=== PATIENT | female | born 1940 | race Hispanic/Latino ===

== ENCOUNTER 2020-11-03 08:52 | Inpatient (IN) | payer MEDICARE ==
--- NOTE | 2020-11-03 10:06 | Emergency Department Report ---
HPI - General Chief Complaint: Dyspnea/Respdistress Time Seen by Provider: 11/03/20 09:18 - HPI HPI: 80-year-old female presents to the emergency department via EMS from her custodial facility with a complaint of weeping of the bilateral lower extremities with pitting edema. They also stated that "resident also has shakiness/jitteriness that is not normal." She was hospitalized 3 weeks ago for anemia and pneumonia, however it was not at our facility. Her initial vitals from the custodial facility show moderate to severe tachycardia and some hypoxia. The patient has a history of dementia and is a very poor historian. She also appears to have a history of hypertension, anxiety, gout, hyperlipidemia and rheumatoid arthritis. ED Review of Systems ROS: Stated complaint: DEMENTIA/LEG EDEMA Other details as noted in HPI Comment: Unobtainable due to pts medical conditions Physical Exam - Physical Exam Vital Signs: Vital Signs 11/03/20 11/03/20 11/03/20 09:30 09:45 09:50 Temperature 100.3 F H Pulse Rate 97 H Respiratory 12 Rate Blood Pressure 147/62 [Left] O2 Sat by Pulse 98 Oximetry 11/03/20 09:51 Temperature Pulse Rate 94 H Respiratory Rate Blood Pressure [Left] O2 Sat by Pulse Oximetry Physical Exam: GENERAL: The patient is well-developed well-nourished. HENT: Normocephalic. Atraumatic. Patient has moist mucous membranes. EYES: Extraocular motions are intact. Ill-appearing. Pupils equal reactive to light bilaterally. NECK: Supple. Trachea is midline. CHEST/LUNGS: Coarse breath sounds throughout the chest. There is some tachypnea but no accessory muscle use. HEART/CARDIOVASCULAR: Regular. There is mild tachycardia. There is no murmur. ABDOMEN: Abdomen is soft, nontender. Patient has normal bowel sounds. There is no abdominal distention. SKIN: Skin is warm and dry. 3+ pitting edema to the bilateral lower extremities. Mild erythema and warmth. No weeping or drainage. NEURO: The patient is awake but confused. AAO x1 to person, but not place or time. Follows some commands. Withdraws from painful stimuli. MUSCULOSKELETAL: There is no tenderness or deformity. ED Course Vital Signs 11/03/20 11/03/20 11/03/20 09:30 09:45 09:50 Temperature 100.3 F H Pulse Rate 97 H Respiratory 12 Rate Blood Pressure 147/62 [Left] O2 Sat by Pulse 98 Oximetry 11/03/20 09:51 Temperature Pulse Rate 94 H Respiratory Rate Blood Pressure [Left] O2 Sat by Pulse Oximetry ED Medical Decision Making - Lab Data Result diagrams: 11/03/20 10:00 11/03/20 10:00 - EKG Data -: EKG Interpreted by Me EKG shows normal: sinus rhythm, axis, intervals, QRS complexes (Q waves to the septal leads), ST-T waves Rate: normal - EKG Data When compared to previous EKG there are: previous EKG unavailable Interpretation: other (Sinus rhythm at 93 bpm. Normal axis, normal intervals. No ST elevation DE) - Radiology Data Radiology results: report reviewed, image reviewed interpreted by me: Chest x-ray shows cardiomegaly and pulmonary vascular congestion. CTA CHEST WITH CONTRAST INDICATION : Shortness of breath, elevated d-dimer. TECHNIQUE: Axial imaging performed through the chest, with contrast bolus timing set to maximize opacification of the pulmonary arteries. Sagittal and coronal reformatted images. 3-plane MIP reformatted images were obtained. All CT scans at this location are performed using CT dose reduction for ALARA by means of automated exposure control. 100 mL of intravenous contrast administered. COMPARISON: None FINDINGS: Bolus: Contrast bolus timing is adequate. PTE: No filling defect is present to suggest PTE. Mediastinum: Mild cardiomegaly. No pericardial effusion. The thyroid gland, tracheobronchial tree, esophagus and aorta are unremarkable. A moderate to large hiatal hernia is identified. No pathologic mediastinal adenopathy. Lungs: Small right pleural effusion and trace left pleural effusion are identified. There is mild pulmonary venous conges tion. 2 cm cyst is noted in the medial right upper lobe. No evidence for infiltrate or mass. No interstitial lung disease. Bones: Degenerative changes in the spine with nothing acute. Upper abdomen: Limited images of the upper abdomen demonstrate at least one large gallstone in the gallbladder measuring 2.1 cm. IMPRESSION: No evidence for pulmonary embolus. Mild CHF. Hiatal hernia. Large gallstone. - Medical Decision Making This patient presents from her custodial facility with a complaint of some shakiness/jitteriness, and weeping bilateral lower extremity swelling. Patient has dementia so it is unknown whether she is at her baseline but she is mostly nonverbal, AAO x1. She does have pitting edema of the bilateral lower extremities. They are warm and slightly erythematous but I do not see any weeping or drainage. She has coarse breath sounds throughout the chest. Patient presents with tachycardia and a low-grade fever. She was then treated empirically with some Levaquin. Later she was found to have a significant urinary tract infection as the source of her fever, as well as her leukocytosis of 25,000. The patient also appears to have a CHF exacerbation with the chest x-ray findings of pulmonary vascular congestion and a BNP of about 1700 without renal insufficiency. She also had an elevated D-dimer level for which she had a CT angiography of the chest. No pulmonary embolism but once again shows mild CHF and a hiatal hernia. Patient will be admitted to the hospital for further evaluation and treatment was accepted for admission by the hospitalist, Dr. Hodge. Critical Care Time: No Critical care attestation.: If time is entered above; I have spent that time in minutes in the direct care of this critically ill patient, excluding procedure time. ED Disposition Clinical Impression: Sepsis Qualifiers: Sepsis type: sepsis due to unspecified organism Sepsis acute organ dysfunction status: unspecified Qualified Code(s): A41.9 - Sepsis, unspecified organism UTI (urinary tract infection) Qualifiers: Urinary tract infection type: acute cystitis Hematuria presence: without hem aturia Qualified Code(s): N30.00 - Acute cystitis without hematuria CHF (congestive heart failure) Qualifiers: Heart failure type: unspecified Heart failure chronicity: unspecified Qualified Code(s): I50.9 - Heart failure, unspecified Leukocytosis Qualifiers: Leukocytosis type: unspecified Qualified Code(s): D72.829 - Elevated white blood cell count, unspecified Disposition: OP ADMIT IP TO THIS HOSP Is pt being admited?: Yes Condition: Serious Time of Disposition: 15:28
--- NOTE | 2020-11-03 10:18 | XRay Report ---
Chest single view INDICATION: Dyspnea IMPRESSION: There is patchy ill-defined airspace disease within both lower lungs. No pleural effusion . Signer Name: Fco Avendano MD Signed: 11/03/2020 10:14 AM Workstation Name: [id number]
[2020-11-03 10:23] LABS: Hematocrit 28.7 % (30.3-42.9); Hemoglobin 8.8 gm/dl (10.1-14.3); Mean Corpuscular HGB Conc 31 % (30-34); Mean Corpuscular Volume 77 fl (79-97); Platelet Count 529 K/mm3 (140-440); Red Blood Count 3.74 M/mm3 (3.65-5.03)
[2020-11-03 10:41] LABS: INR 1.08 (0.87-1.13)
[2020-11-03 10:44] LABS: Alanine Aminotransferase 18 units/L (7-56); Albumin 2.8 g/dL (3.9-5); Blood Urea Nitrogen 24 mg/dL (7-17); Calcium 8.8 mg/dL (8.4-10.2); Hemolysis Index 5
[2020-11-03 10:52] LABS: Red Cell Distribution Width 20.3 % (13.2-15.2)
[2020-11-03] MEDS ORDERED: SODIUM CHLORIDE 0.9% 500 ML 500 ML IV ONE (11:14)
[2020-11-03 11:27] LABS: BUN/Creatinine Ratio 34
[2020-11-03 12:39] LABS: Total Cells Counted 100
[2020-11-03 12:40] LABS: Anisocytosis 1+; Hypochromasia 1+
[2020-11-03 12:41] LABS: Platelet Estimate Consistent w Auto
--- NOTE | 2020-11-03 14:15 | Cat Scan Report ---
CTA CHEST WITH CONTRAST INDICATION : Shortness of breath, elevated d-dimer. TECHNIQUE: Axial imaging performed through the chest, with contrast bolus timing set to maximize opa cification of the pulmonary arteries. Sagittal and coronal reformatted images. 3-plane MIP reformatte d images were obtained. All CT scans at this location are performed using CT dose reduction for ALAR A by means of automated exposure control. 100 mL of intravenous contrast administered. COMPARISON: None FINDINGS: Bolus: Contrast bolus timing is adequate. PTE: No filling defect is present to suggest PTE. Mediastinum: Mild cardiomegaly. No pericardial effusion. The thyroid gland, tracheobronchial tree, e sophagus and aorta are unremarkable. A moderate to large hiatal hernia is identified. No pathologic m ediastinal adenopathy. Lungs: Small right pleural effusion and trace left pleural effusion are identified. There is mild pu lmonary venous congestion. 2 cm cyst is noted in the medial right upper lobe. No evidence for infiltr ate or mass. No interstitial lung disease. Bones: Degenerative changes in the spine with nothing acute. Upper abdomen: Limited images of the upper abdomen demonstrate at least one large gallstone in the g allbladder measuring 2.1 cm. IMPRESSION: No evidence for pulmonary embolus. Mild CHF. Hiatal hernia. Large gallstone. Signer Name: Ahsan Richter Jr, MD Signed: 11/03/2020 2:11 PM Workstation Name: [id number]
[2020-11-03] MEDS ORDERED: ACETAMINOPHEN 650 MG RECT SUPP PR ONE (14:52)
[2020-11-03 15:22] LABS: Bilirubin,Urine NEG (Negative); Blood,Urine NEG (Negative); Color,Urine Yellow (Yellow); Mucus,Urine 1+ /HPF
[2020-11-03 15:23] LABS: WBC,Urine > 182.0 /HPF (0.0-6.0)
--- NOTE | 2020-11-03 22:10 | History and Physical Report ---
History of Present Illness Date of examination: 11/03/20 Date of admission: 11/03/20 15:28 Chief complaint: Bilateral lower extremity redness for 1 week History of present illness: 80-year-old female presents to the emergency department via EMS from her half-way facility with a complaint of weeping of the bilateral lower extremities with pitting edema. They also stated that "resident also has shakiness/jitteriness that is not normal." She was hospitalized 3 weeks ago for anemia and pneumonia, however it was not at our facility. Her initial vitals from the half-way facility show moderate to severe tachycardia and some hypoxia. The patient has a history of dementia and is a very poor historian. She also appears to have a history of hypertension, anxiety, gout, hyperlipidemia and rheumatoid arthritis. Past History Past Medical History: arthritis (Rheumatoid arthritis), hypertension, hyperlipidemia, other (Gout and generalized anxiety disorder) Past Surgical History: No surgical history Social history: other (Lives in personal assisted-[place]) Family history: hypertension Medications and Allergies Allergies Allergy/AdvReac Type Severity Reaction Status Date / Time Penicillins Allergy Unknown Verified 11/03/20 11:17 Sulfa (Sulfonamide Allergy Unknown Verified 11/03/20 11:17 Antibiotics) Home Medications Medication Instructions Recorded Confirmed Last Taken Type ALPRAZolam [Xanax TAB] 0.5 mg PO TID PRN 11/04/20 11/04/20 Unknown History Aspirin [Aspirin BABY CHEW TAB] 81 mg PO QDAY 11/04/20 11/04/20 Unknown History Colchicine 0.6 mg PO PRN 11/04/20 11/04/20 Unknown History Metoprolol [Lopressor] 25 mg PO BID 11/04/20 11/04/20 Unknown History Rivastigmine Tartrate 6 mg PO BID 11/04/20 11/04/20 Unknown History [Rivastigmine] Venlafaxine Xr [Effexor Xr] 150 mg PO QDAY 11/04/20 11/04/20 Unknown History allopurinoL [Zyloprim] 100 mg PO QDAY 11/04/20 11/04/20 Unknown History amLODIPine [Norvasc] 10 mg PO DAILY 11/04/20 11/04/20 Unknown History risperiDONE [RisperDAL] 1 mg PO BID 11/04/20 11/04/20 Unknown History risperiDONE [Risperal] 0.5 mg PO HS 11/04/20 11/04/20 Unknown History Review of Systems All systems: negative Exam - Constitutional Vitals: Temp Pulse Resp BP Pulse Ox 98.3 F 98 H 18 127/47 100 11/03/20 21:00 11/03/20 21:00 11/03/20 21:00 11/03/20 21:00 11/03/20 21:00 General appearance: Present: no acute distress, well-nourished - EENT Eyes: Present: PERRL ENT: hearing intact, clear oral mucosa - Neck Neck: Present: supple, normal ROM - Respiratory Respiratory effort: normal Respiratory: bilateral: CTA - Cardiovascular Heart rate: 78 Rhythm: regular Heart Sounds: Present: S1 & S2. Absent: rub, click - Extremities Extremities: pulses symmetrical, No edema Extremity abnormal: other (Bilateral lower extremity erythema) Peripheral Pulses: within normal limits - Abdominal General gastrointestinal: Present: soft, non-tender, non-distended, normal bowel sounds Female genitourinary: Present: normal - Integumentary Integumentary: Present: clear, warm, dry - Musculoskeletal Musculoskeletal: gait normal, strength equal bilaterally - Psychiatric Psychiatric: appropriate mood/affect, intact judgment & insight - Neurologic Neurologic: CNII-XII intact, moves all extremities HEART Score - HEART Score Troponin: Troponin T 0.016 ng/mL (0.00-0.029) 11/03/20 10:00 Results - Labs CBC & Chem 7: 11/03/20 10:00 11/03/20 10:00 Labs: Laboratory Last Values WBC 25.4 K/mm3 (4.5-11.0) H 11/03/20 10:00 RBC 3.74 M/mm3 (3.65-5.03) 11/03/20 10:00 Hgb 8.8 gm/dl (10.1-14.3) L 11/03/20 10:00 Hct 28.7 % (30.3-42.9) L 11/03/20 10:00 MCV 77 fl (79-97) L 11/03/20 10:00 MCH 24 pg (28-32) L 11/03/20 10:00 MCHC 31 % (30-34) 11/03/20 10:00 RDW 20.3 % (13.2-15.2) H 11/03/20 10:00 Plt Count 529 K/mm3 (140-440) H 11/03/20 10:00 Add Manual Diff Complete 11/03/20 10:00 Total Counted 100 11/03/20 10:00 Seg Neutrophils % Concrete Placement Equipment Operator 11/03/20 10:00 Lymphocytes % (Manual) 3.0 % (13.4-35.0) L 11/03/20 10:00 Nucleated RBC % Not Reportable 11/03/20 10:00 Seg Neutrophils # Man 24.6 K/mm3 (1.8-7.7) H 11/03/20 10:00 Band Neutrophils # 0.0 K/mm3 11/03/20 10:00 Lymphocytes # (Manual) 0.8 K/mm3 (1.2-5.4) L 11/03/20 10:00 Abs React Lymphs (Man) 0.0 K/mm3 11/03/20 10:00 Monocytes # (Manual) 0.0 K/mm3 (0.0-0.8) 11/03/20 10:00 Eosinophils # (Manual) 0.0 K/mm3 (0.0-0.4) 11/03/20 10:00 Basophils # (Manual) 0.0 K/mm3 (0.0-0.1) 11/03/20 10:00 Metamyelocytes # 0.0 K/mm3 11/03/20 10:00 Myelocytes # 0.0 K/mm3 11/03/20 10:00 Promyelocytes # 0.0 K/mm3 11/03/20 10:00 Blast Cells # 0.0 K/mm3 11/03/20 10:00 WBC Morphology Not Reportable 11/03/20 10:00 Hypersegmented Neuts Not Reportable 11/03/20 10:00 Hyposegmented Neuts Not Reportable 11/03/20 10:00 Hypogranular Neuts Not Reportable 11/03/20 10:00 Smudge Cells Not Reportable 11/03/20 10:00 Toxic Granulation Not Reportable 11/03/20 10:00 Toxic Vacuolation Not Reportable 11/03/20 10:00 Dohle Bodies Not Reportable 11/03/20 10:00 Pelger-Huet Anomaly Not Reportable 11/03/20 10:00 Luis Alberto Rods Not Reportable 11/03/20 10:00 Platelet Estimate Consistent w auto 11/03/20 10:00 Clumped Platelets Not Reportable 11/03/20 10:00 Plt Clumps, EDTA Not Reportable 11/03/20 10:00 Large Platelets Not Reportable 11/03/20 10:00 Giant Platelets Not Reportable 11/03/20 10:00 Platelet Satelliting Not Reportable 11/03/20 10:00 Plt Morphology Comment Not Reportable 11/03/20 10:00 RBC Morphology Not Reportable 11/03/20 10:00 Dimorphic RBCs Not Reportable 11/03/20 10:00 Polychromasia Not Reportable 11/03/20 10:00 Hypochromasia 1+ 11/03/20 10:00 Poikilocytosis Not Reportable 11/03/20 10:00 Anisocytosis 1+ 11/03/20 10:00 Microcytosis Not Reportable 11/03/20 10:00 Macrocytosis Not Reportable 11/03/20 10:00 Spherocytes Not Reportable 11/03/20 10:00 Pappenheimer Bodies Not Reportable 11/03/20 10:00 Sickle Cells Not Reportable 11/03/20 10:00 Target Cells Not Reportable 11/03/20 10:00 Tear Drop Cells Not Reportable 11/03/20 10:00 Ovalocytes Not Reportable 11/03/20 10:00 Helmet Cells Not Reportable 11/03/20 10:00 Goldstein-Kennan Bodies Not Reportable 11/03/20 10:00 [place] Rings Not Reportable 11/03/20 10:00 [place] Cells Not Reportable 11/03/20 10:00 Bite Cells Not Reportable 11/03/20 10:00 Crenated Cell Not Reportable 11/03/20 10:00 Elliptocytes Not Reportable 11/03/20 10:00 Acanthocytes (Spur) Not Reportable 11/03/20 10:00 Rouleaux Not Reportable 11/03/20 10:00 Hemoglobin C Crystals Not Reportable 11/03/20 10:00 Schistocytes Not Reportable 11/03/20 10:00 Malaria parasites Not Reportable 11/03/20 10:00 Won Bodies Not Reportable 11/03/20 10:00 Hem Pathologist Commnt No 11/03/20 10:00 PT 13.8 Sec. (12.2-14.9) 11/03/20 10:00 INR 1.08 (0.87-1.13) 11/03/20 10:00 D-Dimer 1061.61 ng/mlDDU (0-234) H 11/03/20 10:00 Sodium 140 mmol/L (137-145) 11/03/20 10:00 Potassium 3.5 mmol/L (3.6-5.0) L 11/03/20 10:00 Chloride 99.9 mmol/L (98-107) 11/03/20 10:00 Carbon Dioxide 29 mmol/L (22-30) 11/03/20 10:00 Anion Gap 15 mmol/L 11/03/20 10:00 BUN 24 mg/dL (7-17) H 11/03/20 10:00 Creatinine 0.7 mg/dL (0.6-1.2) 11/03/20 10:00 Estimated GFR > 60 ml/min 11/03/20 10:00 BUN/Creatinine Ratio 34 % 11/03/20 10:00 Glucose 107 mg/dL (65-100) H 11/03/20 10:00 Lactic Acid 1.30 mmol/L (0.7-2.0) 11/03/20 10:00 Calcium 8.8 mg/dL (8.4-10.2) 11/03/20 10:00 Total Bilirubin 0.20 mg/dL (0.1-1.2) 11/03/20 10:00 AST 38 units/L (5-40) 11/03/20 10:00 ALT 18 units/L (7-56) 11/03/20 10:00 Alkaline Phosphatase 99 units/L (35-129) 11/03/20 10:00 Troponin T 0.016 ng/mL (0.00-0.029) 11/03/20 10:00 NT-Pro-B Natriuret Pep 1798 pg/mL (0-900) H 11/03/20 10:00 Total Protein 5.9 g/dL (6.3-8.2) L 11/03/20 10:00 Albumin 2.8 g/dL (3.9-5) L 11/03/20 10:00 Albumin/Globulin Ratio 0.9 % 11/03/20 10:00 Urine Color Yellow (Yellow) 11/03/20 15:00 Urine Turbidity Cloudy (Clear) 11/03/20 15:00 Urine pH 8.0 (5.0-7.0) H 11/03/20 15:00 Ur Specific [place] 1.027 (1.003-1.030) 11/03/20 15:00 Urine Protein 30 mg/dl mg/dL (Negative) 11/03/20 15:00 Urine Glucose (UA) Neg mg/dL (Negative) 11/03/20 15:00 Urine Ketones Neg mg/dL (Negative) 11/03/20 15:00 Urine Blood Neg (Negative) 11/03/20 15:00 Urine Nitrite Pos (Negative) 11/03/20 15:00 Urine Bilirubin Neg (Negative) 11/03/20 15:00 Urine Urobilinogen 2.0 mg/dL (<2.0) 11/03/20 15:00 Ur Leukocyte Esterase Lg (Negative) 11/03/20 15:00 Urine WBC (Auto) > 182.0 /HPF (0.0-6.0) H 11/03/20 15:00 Urine RBC (Auto) 43.0 /HPF (0.0-6.0) 11/03/20 15:00 Urine WBC Clumps 3+ /HPF 11/03/20 15:00 Urine Mucus 1+ /HPF 11/03/20 15:00 Microbiology: Microbiology 11/03/20 10:00 Peripheral/Venous Blood Culture - Preliminary Culture in Progress 11/03/20 10:00 Peripheral/Venous Blood Culture - Preliminary Culture in Progress Assessment and Plan Advance Directives: Yes (Full code) VTE prophylaxis?: Chemical Plan of care discussed with patient/family: Yes - Patient Problems (1) Sepsis Current Visit: Yes Status: Acute Qualifiers: Sepsis type: sepsis due to unspecified organism Sepsis acute organ dysfunction status: unspecified Qualified Code(s): A41.9 - Sepsis, unspecified organism Plan to address problem: Sepsis protocol (2) Cellulitis of both lower extremities Current Visit: Yes Status: Acute Plan to address problem: IV antibiotics for now (3) UTI (urinary tract infection) Current Visit: Yes Status: Acute Qualifiers: Urinary tract infection type: acute cystitis Hematuria presence: without hematuria Qualified Code(s): N30.00 - Acute cystitis without hematuria Plan to address problem: IV ceftriaxone pending urine cultures (4) Hypertension Current Visit: Yes Status: Chronic Qualifiers: Hypertension type: essential hypertension Qualified Code(s): I10 - Essential (primary) hypertension Plan to address problem: Continue antihypertensives (5) Generalized anxiety disorder Current Visit: Yes Status: Chronic Plan to address problem: On alprazolam as needed (6) DVT prophylaxis Current Visit: Yes Status: Acute Plan to address problem: On heparin and GI prophylaxis
[2020-11-03] MEDS ORDERED: oxyCODONE /ACETAMINOPHEN 5-325MG TAB PO PRN (22:14)
[2020-11-03] MEDS ORDERED: ACETAMINOPHEN 325 MG TAB PO PRN (22:14)
[2020-11-03] MEDS ORDERED: ONDANSETRON 4 MG/2 ML INJ IV PRN (22:14)
[2020-11-03] MEDS ORDERED: MORPHINE 2 MG/1 ML INJ IV PRN (22:14)
[2020-11-03] MEDS ORDERED: METOCLOPRAMIDE 10 MG/2 ML INJ IV PRN (22:14)
[2020-11-03] MEDS ORDERED: LORazepam 2 MG/ML VIAL IV PRN (22:20)
[2020-11-03] MEDS ORDERED: VANCOMYCIN PHARMACY TO DOSE IV SCH (23:00)
[2020-11-04] MEDS ORDERED: VANCOMYCIN 1,500 MG in SODIUM CHLORIDE 0.9% 500 ML 500 ML IV ONE (00:30)
[2020-11-04] MEDS: HEPARIN 5,000 UNIT/1 ML VIAL SUB-Q SCH ×3 (00:32→22:12)
[2020-11-04] MEDS: cefTRIAXone/NS 2 GM/100 ML 2 GM/100 ML BAG IV SCH (09:29)
[2020-11-04] MEDS: FAMOTIDINE 20 MG/2 ML INJ IV SCH ×2 (09:29→22:12)
[2020-11-05] MEDS ORDERED: VANCOMYCIN 1,250 MG in SODIUM CHLORIDE 0.9% 250ML 250 ML IV SCH (01:00)
--- NOTE | 2020-11-05 01:54 | Progress Note ---
Assessment and Plan - Patient Problems (1) Sepsis Current Visit: Yes Status: Acute Qualifiers: Sepsis type: sepsis due to unspecified organism Sepsis acute organ dysfunction status: unspecified Qualified Code(s): A41.9 - Sepsis, unspecified organism Plan to address problem: Sepsis protocol (2) Cellulitis of both lower extremities Current Visit: Yes Status: Acute Plan to address problem: IV antibiotics for now (3) UTI (urinary tract infection) Current Visit: Yes Status: Acute Qualifiers: Urinary tract infection type: acute cystitis Hematuria presence: without hematuria Qualified Code(s): N30.00 - Acute cystitis without hematuria Plan to address problem: IV ceftriaxone pending urine cultures (4) Generalized anxiety disorder Current Visit: Yes Status: Chronic Plan to address problem: On alprazolam as needed (5) Hypertension Current Visit: Yes Status: Chronic Qualifiers: Hypertension type: essential hypertension Qualified Code(s): I10 - Essential (primary) hypertension Plan to address problem: Continue antihypertensives (6) DVT prophylaxis Current Visit: Yes Status: Acute Plan to address problem: On heparin and GI prophylaxis Subjective Date of service: 11/04/20 Principal diagnosis: Bilateral lower extremity cellulitis and urinary tract infection Interval history: 80-year-old female presents to the emergency department via EMS from her [facility] facility with a complaint of weeping of the bilateral lower extremities with pitting edema. They also stated that "resident also has shakiness/jitteriness that is not normal." She was hospitalized 3 weeks ago for anemia and pneumonia, however it was not at our facility. Her initial vitals from the [facility] facility show moderate to severe tachycardia and some hypoxia. The patient has a history of dementia and is a very poor historian. She also appears to have a history of hypertension, anxiety, gout, hyperlipidemia and rheumatoid arthritis. Day #2 11/04/2020 Less anxious today Patient has extensive dementia Objective - Constitutional Vitals: Vital Signs - 12hr 11/04/20 11/04/20 11/04/20 16:04 19:28 23:23 Temperature 96.9 F L 97.9 F 98.3 F Pulse Rate 86 88 85 Respiratory 18 20 20 Rate Blood Pressure 115/51 125/54 113/47 O2 Sat by Pulse 100 100 95 Oximetry General appearance: Present: no acute distress, well-nourished - EENT Eyes: PERRL, EOM intact ENT: hearing intact, clear oral mucosa Ears: bilateral: normal - Neck Neck: supple, normal ROM - Respiratory Respiratory effort: normal Respiratory: bilateral: CTA - Breasts Breasts: normal - Cardiovascular Rhythm: regular Heart Sounds: Present: S1 & S2. Absent: gallop, rub Extremities: pulses intact, No edema, normal color, Full ROM Extremity abnormal: other (Bilateral lower extremity erythema) - Gastrointestinal General gastrointestinal: Present: soft, non-tender, non-distended, normal bowel sounds - Genitourinary Female genitourinary: normal - Integumentary Integumentary: clear, warm, dry - Musculoskeletal Musculoskeletal: 1, strength equal bilaterally - Neurologic Neurologic: moves all extremities - Psychiatric Psychiatric: memory intact, appropriate mood/affect, intact judgment & insight - Labs CBC & Chem 7: 11/03/20 10:00 11/03/20 10:00 HEART Score - HEART Score Troponin: Troponin T 0.016 ng/mL (0.00-0.029) 11/03/20 10:00
[2020-11-05] MEDS: HEPARIN 5,000 UNIT/1 ML VIAL SUB-Q SCH ×2 (10:16→22:37)
[2020-11-05] MEDS: cefTRIAXone/NS 2 GM/100 ML 2 GM/100 ML BAG IV SCH (10:16)
[2020-11-05] MEDS: FAMOTIDINE 20 MG TAB PO SCH ×2 (10:19→22:36)
--- NOTE | 2020-11-06 01:05 | Progress Note ---
Assessment and Plan - Patient Problems (1) Sepsis Current Visit: Yes Status: Acute Qualifiers: Sepsis type: sepsis due to unspecified organism Sepsis acute organ dysfunction status: unspecified Qualified Code(s): A41.9 - Sepsis, unspecified organism Plan to address problem: Sepsis protocol (2) Cellulitis of both lower extremities Current Visit: Yes Status: Acute Plan to address problem: IV antibiotics for now (3) UTI (urinary tract infection) Current Visit: Yes Status: Acute Qualifiers: Urinary tract infection type: acute cystitis Hematuria presence: without hematuria Qualified Code(s): N30.00 - Acute cystitis without hematuria Plan to address problem: IV ceftriaxone pending urine cultures (4) Generalized anxiety disorder Current Visit: Yes Status: Chronic Plan to address problem: On alprazolam as needed (5) Hypertension Current Visit: Yes Status: Chronic Qualifiers: Hypertension type: essential hypertension Qualified Code(s): I10 - Essential (primary) hypertension Plan to address problem: Continue antihypertensives (6) DVT prophylaxis Current Visit: Yes Status: Acute Plan to address problem: On heparin and GI prophylaxis Subjective Date of service: 11/05/20 Principal diagnosis: Bilateral lower extremity cellulitis and urinary tract infection Interval history: 80-year-old female presents to the emergency department via EMS from her residential facility with a complaint of weeping of the bilateral lower extremities with pitting edema. They also stated that "resident also has shakiness/jitteriness that is not normal." She was hospitalized 3 weeks ago for anemia and pneumonia, however it was not at our facility. Her initial vitals from the residential facility show moderate to severe tachycardia and some hypoxia. The patient has a history of dementia and is a very poor historian. She also appears to have a history of hypertension, anxiety, gout, hyperlipidemia and rheumatoid arthritis. Day #2 11/04/2020 Less anxious today Patient has extensive dementia Day #3 11/05/2020 Lower extremity erythema persistent Objective - Constitutional Vitals: Vital Signs - 12hr 11/05/20 22:46 Temperature 97.6 F Pulse Rate 91 H Respiratory 17 Rate Blood Pressure 141/65 O2 Sat by Pulse 100 Oximetry General appearance: Present: no acute distress, well-nourished - EENT Eyes: PERRL, EOM intact ENT: hearing intact, clear oral mucosa Ears: bilateral: normal - Neck Neck: supple, normal ROM - Respiratory Respiratory effort: normal Respiratory: bilateral: CTA - Breasts Breasts: normal - Cardiovascular Rhythm: regular Heart Sounds: Present: S1 & S2. Absent: gallop, rub Extremities: pulses intact, No edema, normal color, Full ROM - Gastrointestinal General gastrointestinal: Present: soft, non-tender, non-distended, normal bowel sounds - Genitourinary Female genitourinary: normal - Integumentary Integumentary: clear, warm, dry - Musculoskeletal Musculoskeletal: 1, strength equal bilaterally - Neurologic Neurologic: moves all extremities - Psychiatric Psychiatric: memory intact, appropriate mood/affect, intact judgment & insight - Labs CBC & Chem 7: 11/03/20 10:00 11/03/20 10:00 HEART Score - HEART Score Troponin: Troponin T 0.016 ng/mL (0.00-0.029) 11/03/20 10:00
[2020-11-06] MEDS: FAMOTIDINE 20 MG TAB PO SCH ×2 (09:18→21:36)
[2020-11-06] MEDS: HEPARIN 5,000 UNIT/1 ML VIAL SUB-Q SCH ×2 (09:18→21:37)
[2020-11-06] MEDS: cefTRIAXone/NS 2 GM/100 ML 2 GM/100 ML BAG IV SCH (09:18)
--- NOTE | 2020-11-07 08:16 | Progress Note ---
Assessment and Plan - Patient Problems (1) Sepsis Current Visit: Yes Status: Acute Qualifiers: Sepsis type: sepsis due to unspecified organism Sepsis acute organ dysfunction status: unspecified Qualified Code(s): A41.9 - Sepsis, unspecified organism Plan to address problem: Sepsis protocol (2) Cellulitis of both lower extremities Current Visit: Yes Status: Acute Plan to address problem: IV antibiotics for now (3) UTI (urinary tract infection) Current Visit: Yes Status: Acute Qualifiers: Urinary tract infection type: acute cystitis Hematuria presence: without hematuria Qualified Code(s): N30.00 - Acute cystitis without hematuria Plan to address problem: IV ceftriaxone pending urine cultures (4) CHF (congestive heart failure) Current Visit: Yes Status: Acute Qualifiers: Heart failure type: unspecified Heart failure chronicity: unspecified Qualified Code(s): I50.9 - Heart failure, unspecified (5) Generalized anxiety disorder Current Visit: Yes Status: Chronic Plan to address problem: On alprazolam as needed (6) Hypertension Current Visit: Yes Status: Chronic Qualifiers: Hypertension type: essential hypertension Qualified Code(s): I10 - Essential (primary) hypertension Plan to address problem: Continue antihypertensives (7) DVT prophylaxis Current Visit: Yes Status: Acute Plan to address problem: On heparin and GI prophylaxis (8) Discharge planning issues Current Visit: Yes Status: Acute Plan to address problem: Patient lives in a personal group home Patient may be discharged on oral antibiotics Subjective Date of service: 11/06/20 Principal diagnosis: Bilateral lower extremity cellulitis, urinary tract infection Interval history: Patient admitted for bilateral lower extremity cellulitis and urinary tract infection Some improvement Objective - Constitutional Vitals: Vital Signs - 12hr 11/06/20 11/07/20 11/07/20 23:57 00:00 04:36 Temperature 98.0 F 98.0 F Pulse Rate 77 90 90 Respiratory 18 18 Rate Blood Pressure 161/60 141/55 O2 Sat by Pulse 96 97 Oximetry General appearance: Present: no acute distress, well-nourished - EENT Eyes: PERRL, EOM intact ENT: hearing intact, clear oral mucosa Ears: bilateral: normal - Neck Neck: supple, normal ROM - Respiratory Respiratory effort: normal Respiratory: bilateral: CTA - Breasts Breasts: normal - Cardiovascular Heart rate: 78 Rhythm: regular Heart Sounds: Present: S1 & S2. Absent: gallop, rub Extremities: pulses intact, No edema, normal color, Full ROM Extremity abnormal: other (Lower extremity erythema present.) - Gastrointestinal General gastrointestinal: Present: soft, non-tender, non-distended, normal bowel sounds - Genitourinary Female genitourinary: normal - Integumentary Integumentary: clear, warm, dry - Musculoskeletal Musculoskeletal: 1, strength equal bilaterally - Neurologic Neurologic: moves all extremities - Psychiatric Psychiatric: memory intact, appropriate mood/affect, intact judgment & insight - Labs CBC & Chem 7: 11/03/20 10:00 11/03/20 10:00 HEART Score - HEART Score Troponin: Troponin T 0.016 ng/mL (0.00-0.029) 11/03/20 10:00
[2020-11-07 08:35] VITALS: BP 157/66
[2020-11-07 09:53] LABS: Basophils # (Auto) 0.1 K/mm3 (0.0-0.1); Basophils % (Auto) 0.8 % (0.0-1.8); Eosinophils # (Auto) 0.3 K/mm3 (0.0-0.4); Eosinophils % (Auto) 3.9 % (0.0-4.3); Hematocrit 26.1 % (30.3-42.9); Hemoglobin 8.7 gm/dl (10.1-14.3); Lymphocytes # (Auto) 1.3 K/mm3 (1.2-5.4); Lymphocytes % (Auto) 17.1 % (13.4-35.0); Mean Corpuscular HGB Conc 33 % (30-34); Mean Corpuscular Volume 74 fl (79-97); Monocytes # (Auto) 0.8 K/mm3 (0.0-0.8); Monocytes % (Auto) 11.3 % (0.0-7.3); Platelet Count 468 K/mm3 (140-440); Red Blood Count 3.52 M/mm3 (3.65-5.03)
[2020-11-07 09:54] LABS: Red Cell Distribution Width 20.3 % (13.2-15.2)
[2020-11-07 10:17] LABS: Alanine Aminotransferase 12 units/L (7-56); Albumin 2.2 g/dL (3.9-5); BUN/Creatinine Ratio 23; Blood Urea Nitrogen 9 mg/dL (7-17); Calcium 8.4 mg/dL (8.4-10.2); Hemolysis Index 0
[2020-11-07] MEDS: cefTRIAXone/NS 2 GM/100 ML 2 GM/100 ML BAG IV SCH (11:06)
[2020-11-07] MEDS: FAMOTIDINE 20 MG TAB PO SCH (11:06)
[2020-11-07] MEDS: HEPARIN 5,000 UNIT/1 ML VIAL SUB-Q SCH (11:06)
--- NOTE | 2020-11-07 11:07 | Discharge Summary ---
Providers - Providers Date of Admission: 11/03/20 15:28 Date of discharge: 11/07/20 Attending physician: MARYCRUZ MENDOZA 11/04/20 08:58 Consult to Dietitian/Nutrition [CONS] Routine Physician Instructions: Reason For Exam: Reason for Consult: Pt needs oral supplement 11/04/20 14:58 Physical Therapy Evaluation and Treat [CONS] Urgent Comment: Reason For Exam: Decrease in mobility Primary care physician: ANNALEE ESTEBAN Hospitalization Condition: Serious Hospital course: 80-year-old female presents to the emergency department via EMS from her custodial facility with a complaint of weeping of the bilateral lower extremities with pitting edema. They also stated that "resident also has shakiness/jitteriness that is not normal." She was hospitalized 3 weeks ago for anemia and pneumonia, however it was not at our facility. Her initial vitals from the custodial facility show moderate to severe tachycardia and some hypoxia. The patient has a history of dementia and is a very poor historian. She also appears to have a history of hypertension, anxiety, gout, hyperlipidemia and rheumatoid arthritis. Hospital course In the ER, patient was noted to have leukocytosis of 25. She was admitted for further evaluation. Patient was started on antibiotics for cellulitis. Urinalysis also shows UTI. Patient is significantly improved and white count is down to 7. She is hemodynamically stable. She will be discharged to complete oral antibiotics in assisted living. She will follow-up with her PCP in a week Disposition: [id number] HOME UNDER [facility] Final Discharge Diagnosis (Prints w/discharge instructions): Sepsis 2/2 cellulitis and UTI Time spent for discharge: 40 minutes - Discharge Diagnoses (1) CHF (congestive heart failure) Status: Chronic Qualifiers: Heart failure type: unspecified Heart failure chronicity: unspecified Qualified Code(s): I50.9 - Heart failure, unspecified (2) Cellulitis of both lower extremities Status: Acute Core Measure Documentation - Palliative Care Palliative Care/ Comfort Measures: Not Applicable - Core Measures Any of the following diagnoses?: none Exam - Physical Exam Narrative exam: VITAL SIGNS: Reviewed. GENERAL: Awake HEAD: No signs of head trauma. EYES: Pupils are equal. Extraocular motions intact. MOUTH: Oropharynx is normal. NECK: No adenopathy, no JVD. CHEST: Chest with diminished breath sounds bilaterally. No wheezes, rales, or rhonchi. CARDIAC: normal S1 and S2, without murmurs, gallops, or rubs. ABDOMEN: Soft, non tender and non distended. No rebound or guarding, and no masses palpated. Bowel Sounds normal. MUSCULOSKELETAL: Bilateral lower extremity redness, slight tenderness which has improved. NEUROLOGIC EXAM: Alert and oriented x3. No focal neurologic deficits SKIN: No obvious lesions - Constitutional Vitals: Temp Pulse Resp BP Pulse Ox 98.0 F 90 20 157/66 97 11/07/20 04:36 11/07/20 04:36 11/07/20 07:41 11/07/20 07:41 11/07/20 04:36 Plan Diet: low fat, low cholesterol, low salt Additional Instructions: Complete antibiotics as ordered. Follow-up with PCP in a week Follow up with: ANNALEE ESTEBAN MD [Primary Care Provider] - 3-5 Days Prescriptions: cephALEXin [Keflex] 500 mg PO Q6HR #28 capsule
[2020-11-07] MEDS ORDERED: POTASSIUM CHLORIDE ER 20 MEQ TAB PO NR (11:15)
--- NOTE | 2020-11-11 17:20 | Electrocardiograph Report ---
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
== END 2020-11-07 17:00 | disposition home health service (06) | DRG 872 ==
LOC: ED 08:52 → 4A 15:28
PROVIDERS: ADMIT Internal Medicine; ATTEND Internal Medicine
DX: A41.9 Sepsis, unspecified organism (principal); L03.116 Cellulitis of left lower limb; L03.115 Cellulitis of right lower limb; N30.00 Acute cystitis without hematuria; I50.9 Heart failure, unspecified; F41.1 Generalized anxiety disorder; I11.0 Hypertensive heart disease with heart failure; F03.90 Unspecified dementia, unspecified severity, without behavioral disturbance, psychotic disturbance, mood disturbance, and anxiety; M10.9 Gout, unspecified; Z82.49 Family history of ischemic heart disease and other diseases of the circulatory system; Z88.0 Allergy status to penicillin; Z88.2 Allergy status to sulfonamides; Z79.82 Long term (current) use of aspirin; Z79.899 Other long term (current) drug therapy
CPT/HCPCS: 36415; 71045; 71275; 80053; 81001; 82140; 83036; 83880; 84484; 85007; 85025; 85379; 85610; 87040; 87076; 87086; 87186; 87641; 93005; 96365; G0378; J0696; J1644; J1956; J3370; J7040; J7050; Q9967